=== PATIENT | female | born 1990 | race Caucasian/White ===

== ENCOUNTER 2017-03-25 13:31 | Emergency (ER) | payer BC ==
[~2017-03-25] VITALS: Ht 154.9 cm; Wt 65.1 kg
[~2017-03-25 13:31] MED LIST: PRENATAL TABLE1 EAC3 PO
[2017-03-25 14:56] LABS: HEMATOCRIT 34.9 % (36.0-46.0); MCH 28.8 PG (29.0-34.0); MCHC 33.5 G/DL (30.0-36.0); MEAN PLAT.VOLUME 9.5 uM^3 (9.5-12.4); PLATELET COUNT 221 K/uL (156-360); RBC DIS.WIDTH-CV 12.6 % (11.8-14.6); RBC DIS.WIDTH-SD 39.6 % (39-53); RED BLOOD COUNT 4.06 M/uL (3.80-5.20); WHITE BLOOD COUNT 6.8 K/uL (4.1-10.2)
[2017-03-25 15:05] LABS: CHLORIDE 105 mEq/L (99-109); POTASSIUM 4.1 mEq/L (3.7-5.4); SODIUM 137 mEq/L (136-147)
[2017-03-25 15:08] LABS: GLUCOSE 79 mg/dL (70-99)
[2017-03-25 15:09] LABS: ANION GAP 9 MEQ/L (2-14)
[2017-03-25 15:10] LABS: TOTAL BILIRUBIN 0.3 mg/dL (0.0-1.0)
[2017-03-25 15:11] LABS: ALKALINE PHOSPHATASE 64 IU/L (3-129); GFR ESTIMATE (CALCULATED) > 59 mL/min/
[2017-03-25 15:12] LABS: UREA NITROGEN (BUN) 12 mg/dL (9-23)
[2017-03-25 15:37] LABS: ADD MIUA? YES; BILIRUBIN NEGATIVE; BLOOD SMALL; COLOR YELLOW ((YELLOW)); GLUCOSE (STRIP) NEGATIVE; KETONES NEGATIVE; LEUKOCYTES TRACE; NITRITE NEGATIVE; PROTEIN (STRIP) NEGATIVE; SPECIFIC GRAVITY 1.015 (1.000-1.030); UROBILINOGEN 0.2 MG/DL (0.2-1.0)
[2017-03-25 15:53] LABS: BACTERIA NONE SEEN /HPF; EPITHELIAL CELLS RARE /HPF; MUCUS TRACE /LPF; RED BLOOD CELLS 0-5 /HPF (0-5); UCUL ADDED? NO; WHITE BLOOD CELLS 0-5 /HPF (0-5)
[2017-03-25] MEDS ORDERED: ZOFRAN ODT8 MG PO (17:08)
[2017-03-25 17:31] VITALS: BP 109/56
== END 2017-03-25 17:32 | disposition home or self-care (01) ==
LOC: EME 13:31
DX: O21.9 Vomiting of pregnancy, unspecified (principal); O20.9 Hemorrhage in early pregnancy, unspecified; Z3A.17 17 weeks gestation of pregnancy; Z87.891 Personal history of nicotine dependence
CPT/HCPCS: 76805; 80053; 81003; 84702; 85027; 99281; 99284

== ENCOUNTER 2017-08-29 07:28 | Inpatient (IN) | payer BC ==
[2017-08-29] VITALS (21 sets, daily range): BP systolic 101–130; BP diastolic 52–81
[~2017-08-29] VITALS: Ht 154.9 cm; Wt 72.1 kg
[~2017-08-29 07:28] MED LIST changes: +ZOFRAN ODT8 MG PO
[2017-08-29] MEDS ORDERED: ZOLOFT50 MG PO (08:01)
[2017-08-29 09:40] LABS: BASOPHIL (%) 0.3 % (0-1); EOSINOPHIL (%) 1.1 % (0-5); EOSINOPHIL COUNT 0.1 K/uL (0-0.3); HEMATOCRIT 30.6 % (36.0-46.0); HEMOGLOBIN 9.8 G/DL (11.9-15.5); IMMATURE GRANULOCYTE (%) 0.2 % (0.0-0.7); LYMPHOCYTE (%) 19.8 % (15-42); LYMPHOCYTE COUNT 1.8 K/uL (1.0-2.8); MCH 25.5 PG (29.0-34.0); MCV 79.5 FL (83-99); MONOCYTE (%) 6.3 % (3-12); MONOCYTE COUNT 0.6 K/uL (0-0.8); NEUTROPHIL (%) 72.3 % (45-76); NEUTROPHIL COUNT 6.5 K/uL (1.8-6.4); PLATELET COUNT 188 K/uL (156-360); RBC DIS.WIDTH-CV 12.4 % (11.8-14.6); RBC DIS.WIDTH-SD 35.7 % (39-53); RED BLOOD COUNT 3.85 M/uL (3.80-5.20); WHITE BLOOD COUNT 8.9 K/uL (4.1-10.2)
[2017-08-29 10:16] LABS: AMPHETAMINE NEGATIVE (500 ng/mL); BARBITURATES NEGATIVE (200 ng/mL); BENZODIAZEPINES NEGATIVE (150 ng/mL); BUPRENORPHINE NEGATIVE (10 ng/mL); COCAINE NEGATIVE (150 ng/mL); METHADONE NEGATIVE (200 ng/mL); METHAMPHETAMINE NEGATIVE (500 ng/mL); OPIATES (MORPHINE) NEGATIVE (100 ng/mL); OXYCODONE NEGATIVE (100 ng/mL); PHENCYCLIDINE NEGATIVE (25 ng/mL); PROPOXYPHENE NEGATIVE (300 ng/mL); THC CANNABINOIDS NEGATIVE (50 ng/mL); TRICYCLIC ANTIDEPRESSANTS NEGATIVE (300 ng/mL)
[2017-08-30 06:06] LABS: BASOPHIL (%) 0.4 % (0-1); BASOPHIL COUNT 0.1 K/uL (0-0.1); EOSINOPHIL (%) 1.3 % (0-5); EOSINOPHIL COUNT 0.2 K/uL (0-0.3); HEMATOCRIT 28.1 % (36.0-46.0); HEMOGLOBIN 9.1 G/DL (11.9-15.5); IMMATURE GRANULOCYTE (%) 0.3 % (0.0-0.7); LYMPHOCYTE (%) 27.4 % (15-42); LYMPHOCYTE COUNT 3.2 K/uL (1.0-2.8); MCH 26.1 PG (29.0-34.0); MCHC 32.4 G/DL (30.0-36.0); MCV 80.7 FL (83-99); MONOCYTE (%) 6.1 % (3-12); MONOCYTE COUNT 0.7 K/uL (0-0.8); NEUTROPHIL (%) 64.5 % (45-76); NEUTROPHIL COUNT 7.6 K/uL (1.8-6.4); PLATELET COUNT 175 K/uL (156-360); RBC DIS.WIDTH-CV 12.7 % (11.8-14.6); RBC DIS.WIDTH-SD 36.6 % (39-53); RED BLOOD COUNT 3.48 M/uL (3.80-5.20); WHITE BLOOD COUNT 11.7 K/uL (4.1-10.2)
[2017-08-30 07:43] VITALS: BP 114/57
[2017-08-30 15:01] VITALS: BP 126/65
== END 2017-08-31 14:41 | disposition home or self-care (01) | DRG 775 ==
LOC: LDRP-OP 07:28 → 2WEST 07:29 → LDRP-OP 10-02 12:11
PROVIDERS: Advanced Practice Midwife
DX: O99.344 Other mental disorders complicating childbirth (principal); O99.354 Diseases of the nervous system complicating childbirth; Z68.35 Body mass index [BMI] 35.0-35.9, adult; O99.02 Anemia complicating childbirth; F41.9 Anxiety disorder, unspecified; O43.113 Circumvallate placenta, third trimester; O70.1 Second degree perineal laceration during delivery; E66.3 Overweight; G43.909 Migraine, unspecified, not intractable, without status migrainosus; O22.43 Hemorrhoids in pregnancy, third trimester; D50.9 Iron deficiency anemia, unspecified; Z37.0 Single live birth; Z3A.39 39 weeks gestation of pregnancy
CPT/HCPCS: 85025; C1755; J3010; J7120

== ENCOUNTER 2017-11-29 10:13 | Day surgery (SDC) | payer BC ==
[~2017-11-29] VITALS: Ht 154.9 cm; Wt 63.5 kg
[~2017-11-29 10:13] MED LIST changes: +EXCEDRIN MIGRA1 EAC3 PO; +ZOLOFT50 MG PO
[2017-11-29 10:32] VITALS: BP 103/62
[2017-11-29 14:10] VITALS: BP 102/61
[2017-11-29 15:09] VITALS: BP 102/62
== END 2017-11-29 15:10 | disposition home or self-care (01) ==
LOC: SDC 10:13
PROC: 0U574ZZ Destruction of Bilateral Fallopian Tubes, Percutaneous Endoscopic Approach (ICD-10-PCS; principal; 2017-11-29)
DX: Z30.2 Encounter for sterilization (principal); Z82.49 Family history of ischemic heart disease and other diseases of the circulatory system; Z87.891 Personal history of nicotine dependence
CPT/HCPCS: J1100; J1885; J2250; J2405; J3010; S0020